=== PATIENT | male | born 1970 ===

== ENCOUNTER 2022-06-23 08:22 | Emergency (ER) | payer MEDICAID ==
[2022-06-23] MEDS ORDERED: Sodium Chloride 0.9% 10 ML Syringe FLUSH PRN (09:04)
[2022-06-23] MEDS ORDERED: Ondansetron 4 MG/2 ML SDV IVPUSH ONE (09:05)
[2022-06-23] MEDS ORDERED: HYDROmorphone 0.5 MG/0.5 ML Syringe IVPUSH ONE (09:06)
[2022-06-23 10:07] LABS: CORONAVIRUS COVID-19 NAA NEGATIVE (NEGATIVE)
[2022-06-23] MEDS ORDERED: LORazepam 2 MG/ML SDV IVPUSH ONE (11:18)
== END 2022-06-23 12:28 | disposition home or self-care (01) ==
LOC: JD.ED 08:22
DX: F10.120 Alcohol abuse with intoxication, uncomplicated (principal); I12.0 Hypertensive chronic kidney disease with stage 5 chronic kidney disease or end stage renal disease; N18.6 End stage renal disease; E11.22 Type 2 diabetes mellitus with diabetic chronic kidney disease; E78.00 Pure hypercholesterolemia, unspecified; K21.9 Gastro-esophageal reflux disease without esophagitis; Z99.2 Dependence on renal dialysis; Z79.4 Long term (current) use of insulin; Z79.899 Other long term (current) drug therapy; Z20.822 Contact with and (suspected) exposure to COVID-19; Y90.0 Blood alcohol level of less than 20 mg/100 ml
CPT/HCPCS: 0241U; 36415; 70450; 80053; 80307; 81001; 83690; 83735; 85025; 96374; 96375; 99284; J1170; J2060; J2405; J3490